=== PATIENT | male | born 1970 | race Caucasian/White ===

== ENCOUNTER 2018-01-19 17:33 | Emergency (ER) | payer BC ==
[2018-01-19] MEDS ORDERED: SODIUM CHLORIDE 0.9% 500 ML IV ONE (17:53)
[2018-01-19] MEDS ORDERED: ONDANSETRON HCL IV 4 MG/2 ML VIAL IV ONE (17:53)
[2018-01-19] MEDS ORDERED: KETOROLAC 30 MG/ML VIAL IVP ONE (17:54)
--- NOTE | 2018-01-19 17:54 | Emergency Department Record ---
History of Present Illness - General Chief Complaint: Abdominal Pain Stated Complaint: GROIN PAIN Time Seen by Provider: 01/19/18 17:40 Source: Patient Mode of Arrival: Ambulatory Limitations: No limitations - History of Present Illness Initial Comments: The patient is here due to the acute onset about 3 hours ago of R groin pain. The pain is sharp and stabbing and is associated with mild nausea. He denies any dysuria, testicle or scrotal pain. The patient has no hx of similar issues and denies any back pain. The patient has had bilateral hernia surgery in the past. MD Complaint: Abdominal pain Onset/Timin -: Hour(s) Location: RLQ Severity scale (1-10): 8 Consistency: Constant Improves With: Nothing Worsens With: Nothing Associated Symptoms: Nausea - Related Data Home Medications Medication Instructions Recorded Confirmed Last Taken Cyclobenzaprine HCl [Flexeril] 10 mg PO ASDIR 01/19/18 01/19/18 Unknown Allergies Allergy/AdvReac Type Severity Reaction Status Date / Time No Known Drug Allergies Allergy Verified 01/19/18 17:45 Travel Screening - Travel/Exposure Within Last 30 Days Have you traveled within the last 30 days?: No - Travel/Exposure Within Last Year Have you traveled outside the [place] in the last year?: No - Additonal Travel Details Have you been exposed to anyone with a communicable illness?: No - Travel Symptoms Symptom Screening: None Review of Systems Constitutional: Denies: Chills, Fever Eyes: Denies: Eye discharge ENT: Denies: Congestion Respiratory: Denies: Cough, Dyspnea Past Medical History - SOCIAL HISTORY Smoking Status: Current every day smoker Alcohol Use: Rare Drug Use: Rare Drug Use Detail:: Marijuana - RESPIRATORY Hx Respiratory Disorders: No - NEURO Hx Neuro Disorders: No - GI Hx GI Disorders: Yes Hx Hiatal Hernia: Yes - Hx Genitourinary Disorders: No - ENDOCRINE Hx Endocrine Disorders: No - MUSCULOSKELETAL Hx Musculoskeletal Disorders: No - PSYCH Hx Psych Problems: No - HEMATOLOGY/ONCOLOGY Hx Hematology/Oncology Disorders: No Family Medical History Any Significant Family History?: No Physical Exam - General General Appearance: Alert, Oriented x3, Cooperative, No acute distress - Head Head exam: Atraumatic, Normocephalic, Normal inspection - Eye Eye exam: Normal appearance, PERRL, EOMI - Neck Neck exam: Normal inspection, Full ROM. negative: Tenderness - Respiratory Respiratory exam: Normal lung sounds bilaterally. negative: Respiratory distress - Cardiovascular Cardiovascular Exam: Regular rate, Normal rhythm, Normal heart sounds - GI/Abdominal GI/Abdominal exam: Soft, Normal bowel sounds. negative: Hernia, Mass, Rebound, Rigid, Tenderness, Other - exam: Circumcision, Normal inspection. negative: Scrotal swelling, Testicular tenderness, Urethral discharge, Vertical testicular lie - Extremities Extremities exam: Normal inspection, Full ROM, Normal capillary refill. negative: Tenderness Course Vital Signs 01/19/18 17:40 Temperature 98.0 F Pulse Rate 52 L Respiratory 20 Rate Blood Pressure 123/91 Pulse Ox 100 - Reevaluation(s) Reevaluation #1: The patient is doing much better at this time. His pain has resolved and he is resting very comfortably. 01/19/18 18:43 Reevaluation #2: The patient has not gone over to CT yet so his care will be turned over to Dr. Hussein at 19:00 due to shift change. 01/19/18 18:51 Medical Decision Making - Lab Data Result diagrams: 01/19/18 18:11 01/19/18 18:11 Disposition Forms: Patient Portal Access Quality - Quality Measures Quality Measures: N/A - Blood Pressure Screening View Details: Yes Does Patient Have Any of the Following: No Blood Pressure Classification: Hypertensive Reading Systolic Measurement: 123 Diastolic Measurement: 91 Screening for High Blood Pressure: < First Hypertensive BP, F/U Documented > [ G8950] First Hypertensive Follow-up Interventions: Referral to alternative/primary care provider.
[2018-01-19 18:25] LABS: BASO % 0.2 % (0-6); EOS % 0.1 % (0-6); HEMATOCRIT 44.1 % (42.0-52.0); HEMOGLOBIN 15.5 gm/dl (14.0-18.0); LYMPH % 6.2 % (16-45); MEAN CORPUSCULAR HEMOGLOBIN 30.2 pg (27-33); MEAN CORPUSCULAR HGB CONC 35.1 g/dl (32-36); MEAN PLATELET VOLUME 10.2 fl (7.4-10.4); MONO % 5.4 % (0-9); PLATELET COUNT 224 K/uL (130-400); RED BLOOD COUNT 5.13 M/uL (4.40-5.70); WHITE BLOOD COUNT W/O DIFF 15.1 K/uL (4.2-12.2)
[2018-01-19 18:33] LABS: URINE APPEARANCE CLEAR; URINE BILIRUBIN NEGATIVE (NEGATIVE); URINE BLOOD LARGE (NEGATIVE); URINE COLOR YELLOW; URINE KETONE TRACE (NEGATIVE); URINE LEUKOCYTE ESTERASE NEGATIVE (NEGATIVE); URINE NITRITE NEGATIVE (NEGATIVE); URINE PROTEIN TRACE (NEGATIVE); URINE UROBILINOGEN 0.2 E.U./dL (0.20 - 1.00)
[2018-01-19 18:41] LABS: BLOOD UREA NITROGEN 23 mg/dL (6-20); EST GLOMERULAR FILTRATION RATE > 60 mL/min
[2018-01-19 18:43] LABS: GLUCOSE,RANDOM 138 mg/dL (74-109)
[2018-01-19 18:46] LABS: URINE GLUCOSE (UA) >=1000 mg/dL (NEGATIVE)
[2018-01-19 18:47] LABS: URINE AMORPHOUS SEDIMENT 4+; URINE RBC 21 - 35 (NONE SEEN)
[2018-01-19] MEDS ORDERED: 0.9 % SODIUM CHLORIDE 1,000 ML BAG IV ONE (18:48)
--- NOTE | 2018-01-19 19:56 | Emergency Department Record ---
History of Present Illness - General Chief Complaint: Abdominal Pain Stated Complaint: GROIN PAIN Time Seen by Provider: 01/19/18 17:40 Source: Patient Mode of Arrival: Ambulatory Limitations: No limitations - History of Present Illness MD Complaint: Abdominal pain Onset/Timin -: Hour(s) Location: RLQ Severity scale (1-10): 8 Consistency: Constant Improves With: Nothing Worsens With: Nothing Associated Symptoms: Nausea - Related Data Home Medications Medication Instructions Recorded Confirmed Last Taken Cyclobenzaprine HCl [Flexeril] 10 mg PO ASDIR 01/19/18 01/19/18 Unknown Allergies Allergy/AdvReac Type Severity Reaction Status Date / Time No Known Drug Allergies Allergy Verified 01/19/18 17:45 Travel Screening - Travel/Exposure Within Last 30 Days Have you traveled within the last 30 days?: No - Travel/Exposure Within Last Year Have you traveled outside the [place] in the last year?: No - Additonal Travel Details Have you been exposed to anyone with a communicable illness?: No - Travel Symptoms Symptom Screening: None Review of Systems Constitutional: Denies: Chills, Fever Eyes: Denies: Eye discharge ENT: Denies: Congestion Respiratory: Denies: Cough, Dyspnea Past Medical History - SOCIAL HISTORY Smoking Status: Current every day smoker Alcohol Use: Rare Drug Use: Rare Drug Use Detail:: Marijuana - RESPIRATORY Hx Respiratory Disorders: No - NEURO Hx Neuro Disorders: No - GI Hx GI Disorders: Yes Hx Hiatal Hernia: Yes - Hx Genitourinary Disorders: No - ENDOCRINE Hx Endocrine Disorders: No - MUSCULOSKELETAL Hx Musculoskeletal Disorders: No - PSYCH Hx Psych Problems: No - HEMATOLOGY/ONCOLOGY Hx Hematology/Oncology Disorders: No Family Medical History Any Significant Family History?: No Physical Exam - General Limitations: No limitations Course Vital Signs 01/19/18 01/19/18 17:40 19:53 Temperature 98.0 F 98.6 F Pulse Rate 52 L Pulse Rate [ 62 Pulse Ox Probe] Respiratory 20 18 Rate Blood Pressure 123/91 Blood Pressure 113/62 [Left Arm] Pulse Ox 100 96 Medical Decision Making - Lab Data Result diagrams: 01/19/18 18:11 01/19/18 18:11 Lab Results 01/19/18 01/19/18 01/19/18 Range/Units 18:11 18:11 18:15 WBC 15.1 H (4.2-12.2) K/uL RBC 5.13 (4.40-5.70) M/uL Hgb 15.5 (14.0-18.0) gm/dl Hct 44.1 (42.0-52.0) % MCV 86.0 (81-97) fl MCH 30.2 (27-33) pg MCHC 35.1 (32-36) g/dl RDW 13.0 (11.5-14.5) % Plt Count 224 (130-400) K/uL MPV 10.2 (7.4-10.4) fl Neutrophils % 74.0 (47-80) % Band Neutrophils % 11.0 H (0-5) % Lymphocytes % 6.2 L (16-45) % Monocytes % 5.4 (0-9) % Eosinophils % 0.1 (0-6) % Basophils % 0.2 (0-6) % Lymphocytes 6.0 L (16-45) % Monocytes 9.0 (0-9) % Basophils 0.0 (0-6) % Eosinophil Count 0.0 (0-6) % Sodium 145 (136-145) mmol/L Potassium 3.7 (3.4-4.5) mmol/L Chloride 105 (98-107) mmol/L Carbon Dioxide 22.0 (22-29) mmol/L Anion Gap 18.0 H (7-16) BUN 23 H (6-20) mg/dL Creatinine 1.0 (0.7-1.2) mg/dL Estimated GFR > 60 mL/min Random Glucose 138 H (74-109) mg/dL Calcium 9.4 (8.6-10.0) mg/dL Urine Color Yellow Urine Appearance Clear Urine pH 7.0 (5.0-8.0) Ur Specific [place] 1.020 (1.002-1.030) Urine Protein Trace H (NEGATIVE) Urine Glucose (UA) >=1000 mg/dl H (NEGATIVE) Urine Ketones Trace H (NEGATIVE) Urine Blood Large H (NEGATIVE) Urine Nitrite Negative (NEGATIVE) Urine Bilirubin Negative (NEGATIVE) Urine Urobilinogen 0.2 (0.20 - 1.00) E.U./dL Ur Leukocyte Esterase Negative (NEGATIVE) Urine RBC 21 - 35 (NONE SEEN) Urine WBC 3 - 5 (0-2/hpf) Ur Epithelial Cells 3 - 6 (FEW) Amorphous Sediment 4+ Disposition Disposition: Discharge Clinical Impression: Renal colic Disposition: Home, Self-Care Condition: (1) Good Instructions: Renal Colic (ED) Additional Instructions: Return if you have pain, fever, or difficulty with urination Call your doctor to go over all final results of the labs, urine and CT Forms: Patient Portal Access Time of Disposition: 19:55 Quality - Quality Measures Quality Measures: N/A - Blood Pressure Screening Does Patient Have Any of the Following: No Blood Pressure Classification: Hypertensive Reading Systolic Measurement: 123 Diastolic Measurement: 91 Screening for High Blood Pressure: < Pre-Hypertensive BP, F/U Documented > [ G8950] Pre-Hypertensive Follow-up Interventions: Referral to alternative/primary care provider.
--- NOTE | 2018-01-21 23:20 | CT SCAN REPORT ---
EXAM: CT SCAN ABDOMEN/PELVIS WO CONTRAST HISTORY: LOWER ABDOMEN PAIN. TECHNIQUE: Sequential axial images were obtained from the diaphragms through the ischiorectal fossa without intravenous or oral contrast administration. FINDINGS: There is a recently passed stone at the right ureterovesical junction measuring 2 mm. There is mild right hydronephrosis/hydroureter. There is atelectasis vs. infiltrate in the right lung base. The non-opacified liver, gallbladder, pancreas, and spleen appear normal. There is a left adrenal nodule measuring 2.7 cm. This likely represents an adenoma. No additional calculi are appreciated. The small and large bowel appears normal. The osseous structures are normal. IMPRESSION: 1. A 2 MM RECENTLY PASSED STONE AT THE RIGHT URETEROVESICAL JUNCTION IN THE URINARY BLADDER. THERE IS MILD RIGHT HYDRONEPHROSIS/HYDROURETER. 2. A 2.7 CM LEFT ADRENAL NODULE. THIS LIKELY REPRESENTS A BENIGN ADENOMA. JOB NUMBER: [id number] MTDD
== END 2018-01-19 20:01 | disposition home or self-care (01) ==
LOC: ER 17:33
DX: N20.0 Calculus of kidney (principal); R10.31 Right lower quadrant pain; R11.0 Nausea; F17.210 Nicotine dependence, cigarettes, uncomplicated
CPT/HCPCS: 99284 ×2; 96374; 96375; 96361; 80048; 81001; 85027; 74176; J1885; J2405; J7030